=== PATIENT | female | born 1960 | race Hispanic/Latino ===

== ENCOUNTER 2017-11-09 13:00 | Emergency (ER) | payer OTHER ==
--- NOTE | 2017-11-09 15:33 | RAD REPORT ---
EXAM DESCRIPTION: US - Abdomen Exam Limited - 11/09/2017 3:06 pm CLINICAL HISTORY: ruq;Abd pain COMPARISON: ABDOMINAL EXAM COMPLETE dated 07/18/2013 FINDINGS: The gallbladder demonstrates no gallstones. No pericholecystic fluid or gallbladder wall t hickening. The common bile duct is normal measuring 3 mm. The liver demonstrates no findings of intrahepatic biliary dilatation. IMPRESSION: Unremarkable examination.
[2017-11-09] MEDS ORDERED: MORPHINE 4 MG/ML SYR ONE (15:50)
[2017-11-09] MEDS ORDERED: ONDANSETRON 4 MG/2 ML VIAL ONE (15:50)
[2017-11-09] MEDS ORDERED: NA CHLORIDE 0.9% 1,000 ML ONE (15:50)
[2017-11-09 15:54] LABS: Absolute Lymphocytes (CBC) 1.4 K/uL (0.7-4.9); Absolute Monocytes 0.8 K/uL (0.1-1.3); Absolute Neutrophil 7.9 K/uL (1.8-8.0); Basophils % 0.4 % (0-1.3); Eosinophils % 0.7 % (0-4.4); Hematocrit 41.4 % (36.0-45.0); Lymphocytes % 13.8 % (15.3-44.8); MCH 28.9 pg (27.0-35.0); MCV 86.2 fL (80-100); Monocytes % 8.1 % (3.3-12.3)
[2017-11-09 16:12] LABS: ALT/SGPT 17 U/L (12-78); AST/SGOT 19 U/L (15-37); Albumin 3.8 g/dL (3.4-5.0); Alkaline Phosphatase 147 U/L (45-117); BUN Blood Urea Nitrogen 14 mg/dL (7-18); Bicarbonate 27 mmol/L (21-32); Bilirubin Direct 0.2 mg/dL (0-0.2); Bilirubin Total 0.9 mg/dL (0.2-1.0); Glucose Level 119 mg/dL (74-106); Lipase 243 U/L (73-393); Potassium 3.7 mmol/L (3.5-5.1); Protein, Total 8.5 g/dL (6.4-8.2); Sodium Level 138 mmol/L (136-145)
[2017-11-09 16:35] LABS: Urine Bacteria <20 /HPF (<20); Urine Culture Reflex Order REFLEXED
[2017-11-09 16:38] LABS: Urine Blood TRACE (NEG); Urine Glucose NEGATIVE (NEG); Urine Protein NEGATIVE (NEG); Urine Specific Gravity 1.025 (1.005-1.030)
--- NOTE | 2017-11-09 16:49 | RAD REPORT ---
EXAM DESCRIPTION: CT - Stone Protocol - 11/09/2017 4:32 pm CLINICAL HISTORY: Abdominal pain. Right lower quadrant pain for 1 day with vomiting COMPARISON: 2014 TECHNIQUE: Computed axial tomography of the abdomen pelvis was obtained without oral or IV contrast. Lack of IV and oral contrast limits evaluation of solid organs, bowel, and vessels. Coronal reformat geoff images were obtained and reviewed. All CT scans are performed using dose optimization technique as appropriate and may include automated exposure control or mA/KV adjustment according to patient size. FINDINGS: Small nonobstructing renal calculi are present bilaterally without hydronephrosis. A 1 mil limeter calculus is present within the distal right ureter. A bladder calculus is not seen. A cirrhotic liver is present. Small low-density lesion within the right lobe is unchanged and consist ent with a cyst. The spleen measures 15 centimeters. The pancreas and adrenals are unremarkable. Small ventral and umbilical hernias are seen. There is no evidence of diverticulitis. The appendix appears normal Mild right middle and right lower lobe opacities may represent atelectasis IMPRESSION: Bilateral nonobstructing renal calculi Nonobstructing 1 millimeter distal right ureteral calculus Cirrhosis
--- NOTE | 2017-11-09 16:57 | ER ---
Nurse's Notes [facility] Name: Andie Lima Age: 57 yrs Sex: Female : 1960 Arrival Date: 11/09/2017 Time: 13:03 Bed 17 Private MD: Diagnosis: Calculus of kidney and ureter;Upper abdominal pain, unspecified Presentation: 11/09 13:26 Presenting complaint: Patient states: RLQ pain that began yesterday. Pt reports nausea aa5 and vomiting, denies diarrhea. Transition of care: patient was not received from another setting of care. Onset of symptoms was November 2017. Risk Assessment: Do you want to hurt yourself or someone else? Patient reports no desire to harm self or others. Initial Sepsis Screen: Does the patient meet any 2 criteria? No. Patient's initial sepsis screen is negative. Does the patient have a suspected source of infection? No. Patient's initial sepsis screen is negative. Care prior to arrival: None. 13:26 Method Of Arrival: Ambulatory aa5 13:26 Acuity: TATUM 3 aa5 Historical: - Allergies: 13:27 Sulfa (Sulfonamide Antibiotics); aa5 - PMHx: 13:27 Hypertension; aa5 13:28 Hep C; Cirrhosis; TIA; aa5 - PSHx: 13:27 kidney stone removal; knee and back surgery; Carpal Tunnel Repair; aa5 - Immunization history:: Adult Immunizations up to date. - Social history:: Smoking status: Patient/guardian denies using tobacco. - Ebola Screening: : No symptoms or risks identified at this time. Screenin:00 Abuse screen: Denies threats or abuse. Denies injuries from another. Nutritional jl7 screening: No deficits noted. Tuberculosis screening: No symptoms or risk factors identified. Fall Risk IV access (20 points). Total Ayoub Fall Scale indicates No Risk (0-24 pts). Assessment: 13:45 General: Appears uncomfortable, Behavior is cooperative, anxious. Pain: Complains of jl7 pain in epigastric area and right upper quadrant Pain does not radiate. Pain currently is 8 out of 10 on a pain scale. Quality of pain is described as aching. Neuro: Level of Consciousness is awake, alert, obeys commands, Oriented to person, place, time, situation. Cardiovascular: Patient's skin is warm and dry. Respiratory: Airway is patent Respiratory effort is even, unlabored, Respiratory pattern is regular, symmetrical. GI: Bowel sounds present X 4 quads. Abd is soft X 4 quads Abdomen is tender to palpation in epigastric area and right upper quadrant. : No signs and/or symptoms were reported regarding the genitourinary system. Denies burning with urination, pain. EENT: No signs and/or symptoms were reported regarding the EENT system. Derm: Skin is pink, warm \T\ dry. Musculoskeletal: No signs and/or symptoms reported regarding the musculoskeletal system. 15:00 Reassessment: Patient and/or family updated on plan of care and expected duration. Pain jl7 level reassessed. Patient is alert, oriented x 3, equal unlabored respirations, skin warm/dry/pink. 16:00 Reassessment: Patient and/or family updated on plan of care and expected duration. Pain jl7 level reassessed. Patient is alert, oriented x 3, equal unlabored respirations, skin warm/dry/pink. 17:00 Reassessment: Patient and/or family updated on plan of care and expected duration. Pain jl7 level reassessed. Patient is alert, oriented x 3, equal unlabored respirations, skin warm/dry/pink. Patient states symptoms have improved. Vital Signs: 13:28 BP 157 / 74; Pulse 90; Resp 16 S; Temp 99.2(TE); Pulse Ox 95% on R/A; Weight 81.65 kg aa5 (R); Height 4 ft. 11 in. (149.86 cm) (R); Pain 9/10; 14:30 BP 150 / 75; Pulse 89; Resp 16; Pulse Ox 96% ; jl7 16:00 BP 145 / 74; Pulse 85; Resp 16; Pulse Ox 95% ; jl7 17:30 BP 151 / 74; Pulse 89; Resp 16; Pulse Ox 98% ; jl7 13:28 Body Mass Index 36.36 (81.65 kg, 149.86 cm) aa5 ED Course: 13:03 Patient arrived in ED. sb2 13:27 Triage completed. aa5 13:27 Arm band placed on. aa5 14:00 Patient has correct armband on for positive identification. Placed in gown. Bed in low jl7 position. Call light in reach. Side rails up X 1. Pulse ox on. NIBP on. Warm blanket given. 14:19 Aline Goins, BRIANA is Primary Nurse. jl7 14:28 Jamal Brown MD is Attending Physician. gs 15:06 US Abdomen Limited In Process Unspecified. EDMS 15:13 Ultrasound completed. Patient tolerated well. Patient moved back from ultrasound. lc3 15:30 Initial lab(s) drawn, by me, sent to lab. Urine collected: clean catch specimen, jl7 cloudy. Inserted saline lock: 22 gauge in left forearm, using aseptic technique. Blood collected. 16:[address] via wheelchair. vm2 16:32 CT completed. Patient tolerated procedure well. Patient moved back from CT. vm2 16:33 CT Stone Protocol In Process Unspecified. EDMS 16:56 Lei Whiting MD is Referral Physician. gs 17:43 No provider procedures requiring assistance completed. IV discontinued, intact, jl7 bleeding controlled, No redness/swelling at site. Pressure dressing applied. Administered Medications: 15:58 Drug: NS 0.9% 1000 ml Route: IV; Rate: 125 ml/hr; Site: left forearm; jl7 17:41 Follow up: Response: No adverse reaction; IV Status: IV converted to saline lock jl7 16:00 Drug: Zofran 4 mg Route: IVP; Site: left forearm; jl7 16:30 Follow up: Response: No adverse reaction; Pain is decreased jl7 16:02 Drug: morphine 4 mg Route: IVP; Site: left forearm; jl7 16:30 Follow up: Response: No adverse reaction; Pain is decreased jl7 Outcome: 16:57 Discharge ordered by . gs 17:43 Discharged to home ambulatory. jl7 17:43 Condition: stable 17:43 Discharge instructions given to patient, family, Instructed on discharge instructions, follow up and referral plans. medication usage, Demonstrated understanding of instructions, follow-up care, medications, Prescriptions given X 1. 17:47 Patient left the ED. jl7 Addendum: 11/13/2017 12:07 Addendum: Culture Results: Positive urine culture. Patient was not prescribed a a5 antibiotics at discharge. Report given to PARAS for further evaluation and then to sliver lapper for follow up with patient. Prescription called-in to pharmacy of choice. to [facility] in [place] per pt's choice at 1200. Signatures: Dispatcher [employer] EDErie [facility] CenterWeston, Mara, RN RN aa5 Clarissa Turner Jahala RN RN jl7 Patito Bravo 2 Jamal Brown MD MD Jaimie Becerril sb2
--- NOTE | 2017-11-09 16:57 | EDPHYS ---
Physician Documentation [facility] Name: Andie Lima Age: 57 yrs Sex: Female : 1960 Arrival Date: 11/09/2017 Time: 13:03 Bed 17 Private MD: ED Physician Jamal Brown HPI: 11/09 16:54 This 57 yrs old Female presents to ER via Ambulatory with complaints of gs Abdominal Pain. 16:54 The patient presents with abdominal pain in the right upper quadrant. Onset: The gs symptoms/episode began/occurred yesterday, and became worse. The symptoms radiate to Associated signs and symptoms: Pertinent negatives: chest pain. The symptoms are described as intermittent, sharp. Modifying factors: The symptoms are alleviated by nothing, the symptoms are aggravated by nothing. Severity of pain: At its worst the pain was moderate in the emergency department the pain is unchanged. The patient has not experienced similar symptoms in the past. Historical: - Allergies: 13:27 Sulfa (Sulfonamide Antibiotics); aa5 - PMHx: 13:27 Hypertension; aa5 13:28 Hep C; Cirrhosis; TIA; aa5 - PSHx: 13:27 kidney stone removal; knee and back surgery; Carpal Tunnel Repair; aa5 - Immunization history:: Adult Immunizations up to date. - Social history:: Smoking status: Patient/guardian denies using tobacco. - Ebola Screening: : No symptoms or risks identified at this time. ROS: 16:54 All other systems are negative. gs Exam: 16:54 Head/Face: Normocephalic, atraumatic. Eyes: Pupils equal round and reactive to light, gs extra-ocular motions intact. Lids and lashes normal. Conjunctiva and sclera are non-icteric and not injected. Cornea within normal limits. Periorbital areas with no swelling, redness, or edema. ENT: Nares patent. No nasal discharge, no septal abnormalities noted. Tympanic membranes are normal and external auditory canals are clear. Oropharynx with no redness, swelling, or masses, exudates, or evidence of obstruction, uvula midline. Mucous membranes moist. Neck: Trachea midline, no thyromegaly or masses palpated, and no cervical lymphadenopathy. Supple, full range of motion without nuchal rigidity, or vertebral point tenderness. No Meningismus. Chest/axilla: Normal chest wall appearance and motion. Nontender with no deformity. No lesions are appreciated. Cardiovascular: Regular rate and rhythm with a normal S1 and S2. No gallops, murmurs, or rubs. Normal PMI, no JVD. No pulse deficits. Respiratory: Lungs have equal breath sounds bilaterally, clear to auscultation and percussion. No rales, rhonchi or wheezes noted. No increased work of breathing, no retractions or nasal flaring. Back: No spinal tenderness. No costovertebral tenderness. Full range of motion. Skin: Warm, dry with normal turgor. Normal color with no rashes, no lesions, and no evidence of cellulitis. MS/ Extremity: Pulses equal, no cyanosis. Neurovascular intact. Full, normal range of motion. Neuro: Awake and alert, GCS 15, oriented to person, place, time, and situation. Cranial nerves II-XII grossly intact. Motor strength 5/5 in all extremities. Sensory grossly intact. Cerebellar exam normal. Normal gait. 16:54 Constitutional: The patient appears alert, awake. 16:54 Abdomen/GI: Palpation: moderate abdominal tenderness, in the right upper quadrant. Vital Signs: 13:28 BP 157 / 74; Pulse 90; Resp 16 S; Temp 99.2(TE); Pulse Ox 95% on R/A; Weight 81.65 kg aa5 (R); Height 4 ft. 11 in. (149.86 cm) (R); Pain 9/10; 14:30 BP 150 / 75; Pulse 89; Resp 16; Pulse Ox 96% ; jl7 16:00 BP 145 / 74; Pulse 85; Resp 16; Pulse Ox 95% ; jl7 17:30 BP 151 / 74; Pulse 89; Resp 16; Pulse Ox 98% ; jl7 13:28 Body Mass Index 36.36 (81.65 kg, 149.86 cm) aa5 MDM: 14:44 Patient medically screened. 16:54 Differential diagnosis: cholecystitis, Cholelithiasis, non-specific abd pain, gs pancreatitis, Ureterolithiasis. Data reviewed: vital signs, nurses notes. Response to treatment: the patient's symptoms have mildly improved after treatment, and as a result, I will discharge patient. 11/09 14:45 Order name: Basic Metabolic Panel; Complete Time: 16:19 gs 11/09 14:45 Order name: CBC with Diff; Complete Time: 16:19 11/09 14:45 Order name: Hepatic Function; Complete Time: 16:19 11/09 14:45 Order name: Lipase; Complete Time: 16:19 11/09 14:45 Order name: Urine Microscopic Only; Complete Time: 16:54 11/09 16:07 Order name: Urine Dipstick--Ancillary (enter results); Complete Time: 16:54 11/09 14:45 Order name: IV Saline Lock; Complete Time: 15:45 11/09 14:45 Order name: Labs collected and sent; Complete Time: 15:45 11/09 14:45 Order name: US Abdomen Limited; Complete Time: 15:50 11/09 16:19 Order name: CT Stone Protocol; Complete Time: 16:54 11/09 16:37 Order name: Urine Culture [facility] 11/09 14:45 Order name: Urine Dipstick-Ancillary (obtain specimen); Complete Time: 16:15 gs Administered Medications: 15:58 Drug: NS 0.9% 1000 ml Route: IV; Rate: 125 ml/hr; Site: left forearm; jl7 17:41 Follow up: Response: No adverse reaction; IV Status: IV converted to saline lock jl7 16:00 Drug: Zofran 4 mg Route: IVP; Site: left forearm; jl7 16:30 Follow up: Response: No adverse reaction; Pain is decreased jl7 16:02 Drug: morphine 4 mg Route: IVP; Site: left forearm; jl7 16:30 Follow up: Response: No adverse reaction; Pain is decreased jl Disposition: 11/09/17 16:57 Discharged to Home. Impression: Calculus of kidney and ureter, Upper abdominal pain, unspecified. - Condition is Stable. - Discharge Instructions: Kidney Stones. - Prescriptions for Tylenol- Codeine #4 300-60 mg Oral Tablet - take 1 tablet by ORAL route every 6 hours As needed; 10 tablet. - Medication Reconciliation Form, Thank You Letter, Antibiotic Education, Prescription Opioid Use form. - Follow up: Lei Whiting MD; When: 2 - 3 days; Reason: Re-evaluation by your physician. Signatures: Dispatcher [employer] EDNH Mara Weston, RN RN aa5 Aline Goins RN RN jl7 Jamal Brown MD MD gs Corrections: (The following items were deleted from the chart) 17:47 16:57 11/09/2017 16:57 Discharged to Home. Impression: Calculus of kidney and ureter; jl7 Upper abdominal pain, unspecified. Condition is Stable. Forms are Medication Reconciliation Form, Thank You Letter, Antibiotic Education, Prescription Opioid Use. Follow up: Lei Whiting; When: 2 - 3 days; Reason: Re-evaluation by your physician. gs
[2017-11-09 17:51] VITALS: TEMP 99.2
[2017-11-09 17:54] VITALS: BP 151/74; O2SAT 98
== END 2017-11-09 17:47 | disposition home or self-care (01) ==
LOC: ER 13:00
DX: N20.2 Calculus of kidney with calculus of ureter (principal); I10 Essential (primary) hypertension; Z88.2 Allergy status to sulfonamides
CPT/HCPCS: 36415; 74176; 76377; 76705; 80048; 80076; 81003; 81015; 83690; 85025; 87077; 87086; 87088; 87186; 96361; 96374; 96375; 99284; J2405; J7030

== ENCOUNTER 2021-02-16 20:20 | Emergency (ER) | payer BC ==
[2021-02-16 20:56] LABS: Absolute Lymphocytes (CBC) 1.5 K/uL (0.7-4.9); Basophils % 0.4 % (0-1.3); Hematocrit 39.9 % (36.0-45.0); Lymphocytes % 20.5 % (15.3-44.8); MPV 9.6 fL (7.6-11.3)
[2021-02-16 20:59] LABS: Protime INR 1.05
[2021-02-16 21:05] LABS: Potassium 3.6 mmol/L (3.5-5.1)
[2021-02-16 21:28] LABS: Urine Blood Trace-intact (Negative); Urine Glucose Negative (Negative); Urine Protein Negative (Negative); Urine Specific Gravity 1.025 (1.005-1.030)
[2021-02-16 21:39] LABS: ALT/SGPT 23 U/L (12-78); AST/SGOT 24 U/L (15-37); Albumin 3.8 g/dL (3.4-5.0); Alkaline Phosphatase 128 U/L (45-117); Bilirubin Direct 0.2 mg/dL (0-0.2); Bilirubin Total 0.6 mg/dL (0.2-1.0); Protein, Total 7.9 g/dL (6.4-8.2); Troponin (Emerg Dept Use Only) < 0.02 ng/mL (0.0-0.045)
--- NOTE | 2021-02-16 21:40 | RAD REPORT ---
EXAM DESCRIPTION: CT - Ct Stroke Brain Wo Cont - 02/16/2021 8:29 pm CLINICAL HISTORY: DOUBLE VISON COMPARISON: CT head October 2009 TECHNIQUE: Axial 5 millimeter thick images of the head were obtained without IV contrast. All CT scans are performed using dose optimization technique as appropriate and may include automated exposure control or mA/KV adjustment according to patient size. FINDINGS: No intracranial hemorrhage, mass, or cerebral edema. No acute infarction identifiable. No extra-axial fluid collections. Mccall matter-white matter differentiation is preserved. Ventricles no rmal. Intracranial findings are similar comparison. Mastoid air cells are clear. No acute paranasal sinus finding. Preliminary findings were provided to the referring physician by telephone 2030 hours. Preliminary im ages were only available in the exception folder which precluded dictation at the time of the study a nd precluded comparison to any prior imaging. IMPRESSION: No CT evidence of acute intracranial process.
--- NOTE | 2021-02-16 21:52 | RAD REPORT ---
EXAM DESCRIPTION: RAD - Chest Single View - 02/16/2021 9:07 pm CLINICAL HISTORY: double vision COMPARISON: Two view chest November 2012 TECHNIQUE: AP portable chest image was obtained 02/16/2021 9:07 pm . FINDINGS: Lung volumes are very low. Motion, artifact and prominent overlying soft tissues further l imit the examination. No peripheral mass or consolidation. Interstitial markings are prominent. There is some questionable patchy alveolar opacification in each lung base. Heart and vasculature are normal. No measurable pleu ral effusion and no pneumothorax. No acute bony abnormality seen. No acute aortic findings suspected. IMPRESSION: No large mass or consolidation. Low lung volumes additional factors detailed above limit the assessment. Minimal lung base infiltrate s are not entirely excluded.
[2021-02-16 21:54] LABS: Barbiturates NEGATIVE (NEGATIVE); Benzodiazepines NEGATIVE (NEGATIVE); Cocaine NEGATIVE (NEGATIVE); METHAMPHETAM NEGATIVE (NEGATIVE); Methadone NEGATIVE (NEGATIVE); Opiates NEGATIVE (NEGATIVE); Phencyclidine NEGATIVE (NEGATIVE); THC Cannibis NEGATIVE (NEGATIVE)
[2021-02-16] MEDS ORDERED: FLUORESCEIN SODIUM 1 MG/WRAP ONE (22:01)
[2021-02-16] MEDS ORDERED: TETRACAINE HCL 0.5% 4ML OPTH ONE (22:01)
--- NOTE | 2021-02-16 22:02 | RAD REPORT ---
EXAM DESCRIPTION: CT - Head angio - 02/16/2021 9:54 pm CLINICAL HISTORY: DOUBLE VISON TECHNIQUE: During dynamic enhancement using nonionic IV contrast, axial 1 millimeter thick images of the head were obtained. Sagittal and axial reconstruction images were generated using MIP technique and reviewed. All CT scans are performed using dose optimization technique as appropriate and may include automated exposure control or mA/KV adjustment according to patient size. COMPARISON: CT head same date FINDINGS: No aneurysm or vascular malformation identified. Major venous sinuses are patent. No stenosis, named branch occlusion, vasculitis or other significant vascular finding identifiable. Chronic sphenoid sinusitis is present. No expansile changes or extension beyond the melgar of the sinu s. IMPRESSION: Negative CT angio head examination. Chronic sphenoid sinusitis
--- NOTE | 2021-02-16 22:04 | RAD REPORT ---
EXAM DESCRIPTION: CT - Neck Angio - 02/16/2021 9:55 pm CLINICAL HISTORY: DOUBLE VISON TECHNIQUE: During dynamic enhancement using nonionic IV contrast, axial 2 mm thick images of the nec k were obtained. Sagittal and axial reconstruction images were generated using MIP technique and revi ewed. All CT scans are performed using dose optimization technique as appropriate and may include automated exposure control or mA/KV adjustment according to patient size. COMPARISON: CT head same date, CT angio head same date FINDINGS: No aneurysm or vascular malformation identified. No carotid or vertebral dissection. No aortic arch or great vessel origin abnormality seen. Artifact limits evaluation of the origin of r ight common carotid artery. Vertebral artery origins unremarkable as well. No stenosis, vasculitis or other significant carotid artery finding. No focal abnormality of either vertebral artery. Basilar a rtery is normal. IMPRESSION: Negative CT angio neck examination for acute or significant finding.
--- NOTE | 2021-02-16 22:50 | ER ---
Nurse's Notes [facility] Name: Andie Lima Age: 60 yrs Sex: Female : 1960 Arrival Date: 02/16/2021 Time: 20:31 Bed 4 Private MD: Diagnosis: Diplopia Presentation: 02/16 20:18 Chief complaint: EMS states: they were toned out for report of pt with visual bb disturbance and history of TIAs. Pt had episode of double vision lasting a couple of minutes at 1900 then it started again at 1930 and would not go away. Coronavirus screen: shortness of breath, Client presents with at least one sign or symptom that may indicate coronavirus-19. Standard/surgical mask placed on the client. Ebola Screen: No symptoms or risks identified at this time. 20:18 Method Of Arrival: EMS: [facility] bb 20:18 Care prior to arrival: IV initiated. 20 GA, in the right antecubital area. bb 20:28 Initial Sepsis Screen: Does the patient meet any 2 criteria? No. Patient's initial bb sepsis screen is negative. Does the patient have a suspected source of infection? No. Patient's initial sepsis screen is negative. Risk Assessment: Do you want to hurt yourself or someone else? Patient reports no desire to harm self or others. Onset of symptoms was February 16, 2021 at 19:00. 20:28 Acuity: TATUM 2 bb 21:[address] scan. Pt A\T\O x 4. Denies N, V, numbness, tingling, pain. Pt only c/o df1 double vision lasting for periods of 2-3 min then resolving. 22:49 Note Visual acuity completed. with glasses 20/200 left eye 20/200 right eye 20/200 both df1 eyes. 22:49 Note without glasses left eye 20/200 right eye 20/200 both eyes 20/200. df1 23:00 Note Pt on phone with family to inform them of transfer. df1 23:16 Note Pt states feeling anxious. Provider notified. Orders received. Pt A\T\O x 4. Denies df1 N, V, pain, dizziness, numbness, tingling. 23:55 An acute neurological deficit is present. The charge nurse has been notified. The df1 patients blood glucose was checked before arriving to the hospital and was found to be normal. 02/17 00:21 Note Pt to have another ct scan. Note pt found with white froth on mouth and difficult df1 to arouse. Provider at bedside. sternal rub preformed. Pt moans and briefly opens eyes. airway suctioned minimal secretions noted. Pt moving all four extremities but unable to follow commands. 2l NC in place. 00:21 Note 1 liter NS up with pressure bag. df1 00:41 Note Provider at bedside for reassessment. Note Pt back from CT no contrast. White df1 froth noted to mouth. Minimal secretions cleared. Gag reflex intact. Pt responds to physical stimuli. no eye opening noted. Pt swings arms during suctioning. Pt moving BLE voluntary. 96% on 2LNC. 00:50 Note ekg completed. Pt grunting with respirations. R20. 95% on 2 LNC. During suctioning df1 of oral airway, pt retracts from yanker and bites down. airway cleared. Pt moves spontaneously but does not follow commands. 02:18 Note No response noted from reversal agent. Pt pushes away when patient care initiated. df1 02:44 Note Pt somnolent. Gag reflex intact. Pt responds to painful stimuli. Pt does not df1 follow commands. Pt pushes away patient care. Historical: - Allergies: 02/16 20:40 Sulfa (Sulfonamide Antibiotics); bb - Home Meds: 20:40 losartan 100 mg oral tab 1 tab once daily [Active]; nadolol 40 mg oral tab 1 tab once bb daily [Active]; lactulose 10 gram/15 mL (15 mL) Oral soln 30 mL twice a day [Active]; iron pill 65 mg daily [Active]; vitamin D 3 1000 daily [Active]; Vitamin C 1000 daily [Active]; 22:40 lasix 40mg 2 tabs in am 1 tab in pm, [Active]; df1 - PMHx: 20:40 Cirrhosis; HEP C; Hypertension; TIA; bb - PSHx: 22:40 orthoscopic left knee; df1 - Immunization history:: Adult Immunizations up to date, Client reports receiving the 2nd dose of the Covid vaccine, Date received: July 07, 2020. - Social history:: Smoking status: unknown. Screenin:00 Abuse screen: Denies threats or abuse. Nutritional screening: No deficits noted. df1 Tuberculosis screening: No symptoms or risk factors identified. Fall Risk No fall in past 12 months (0 pts). No secondary diagnosis (0 pts). IV access (20 points). Ambulatory Aid- None/Bed Rest/Nurse Assist (0 pts). Gait- Normal/Bed Rest/Wheelchair (0 pts) Mental Status- Oriented to own ability (0 pts). Assessment: 20:18 Reassessment: Pt to CT scan via EMS stretcher code stroke called. bb 20:27 Reassessment: Accucheck completed BGL 133. bb 20:30 VAN Scoring: Arm Drift: Patients demonstrates NO arm weakness. Patient is VAN Negative. df1 Visual Disturbance: Patient reports double vision. Provider notified of +VAN scoring. Aphasia: No aphasia noted. Neglect: No neglect noted. T-PA (Activase) Screening:. General: Appears in no apparent distress. Behavior is calm, cooperative, Reports double vision. Pain: Denies pain. Neuro: Reports diplopia. Cardiovascular: No deficits noted. Respiratory: No deficits noted. GI: No deficits noted. : No deficits noted. EENT: Reports double vision. Derm: No deficits noted. Musculoskeletal: No deficits noted. 22:39 Reassessment: Initiated transfer to [facility] with Oidlia Mccracken RN. bb 22:48 EENT:. df1 23:20 The patient has not been NPO before screening. The patient is alert, and able to follow df1 commands. The patient does not exhibit slurred or garbled speech. The patient is not exhibiting difficulty speaking. The patient does not exhibit difficulty understanding words. The patient is able to swallow own secretions with no drooling or need for suction. Patient tolerated one teaspoon of water. No drooling, immediate coughing, gurgling, or clearing of the throat was noted. The patient tolerated 90mL of water. No drooling, immediate coughing, gurgling, or clearing of the throat was noted. The patient passed the bedside swallow screening. Oral medications may be given as ordered. Contact Physician for further diet orders. Provider notified of bedside swallow screening results: Kana Bennett MD. 02/17 00:18 Reassessment: pt accepted to [facility] by Dr Gay, hospitalist and Dr Whitfield bb neurologist. 01:35 Reassessment: Dr Bennett on phone with Dr Gay to report change in pt condition. bb Vital Signs: 02/16 20:28 BP 131 / 77; Pulse 80; Resp 20; Temp 98.5(O); Pulse Ox 95% on R/A; Weight 89.81 kg; bb Height 4 ft. 11 in. (149.86 cm) (R); Pain 0/10; 20:51 BP 128 / 61; Pulse 83; Resp 18; Pulse Ox 96% on R/A; Pain 0/10; df1 22:00 BP 138 / 73; Pulse 81; Resp 18; Pulse Ox 98% on R/A; Pain 0/10; df1 22:30 BP 135 / 79; Pulse 81; Resp 18; Pulse Ox 94% on R/A; Pain 0/10; df1 22:30 BP 133 / 77; Pulse 80; Resp 18; Pulse Ox 94% on R/A; Pain 0/10; df1 02/17 00:21 BP 98 / 79; Pulse 65; Resp 18; Pulse Ox 95% on 2 lpm NC; df1 00:40 BP 91 / 61; Pulse 70; Resp 25; Pulse Ox 94% on 2 lpm NC; df1 00:50 BP 121 / 91; Pulse 66; Resp 20; Pulse Ox 95% on 2 lpm NC; df1 01:58 BP 120 / 72; Pulse 69; Resp 18; Pulse Ox 95% on 4 lpm NC; df1 02/16 20:28 Body Mass Index 39.99 (89.81 kg, 149.86 cm) bb Visual Acuity: 02/16 22:30 Left Eye Visual acuity 20/200, Pupil size 3 mm, Normal, React To Light, Reactive To df1 Accomodation; Right Eye Visual acuity 20/200, Pupil size 3 mm, Normal, React To Light, Reactive To Accomodation; Both Eyes Visual acuity 20/200; With Lenses; 22:30 Left Eye Visual acuity 20/200, Pupil size 3 mm, Normal, Reactive To Accomodation; Right df1 Eye Visual acuity 20/200, Pupil size 3 mm, Normal, Reactive To Accomodation; Both Eyes Visual acuity 20/200; Without Lenses; NIH Stroke Scale Scores: 20:30 NIHSS Score: 0 df1 20:30 NIHSS Score: 0 mh7 20:45 NIHSS Score: 0 df1 21:00 NIHSS Score: 0 df1 21:15 NIHSS Score: 0 df1 21:45 NIHSS Score: 0 df1 22:15 NIHSS Score: 0 df1 ED Course: 20:[address] scan via EMS stretcher. bb 20:23 Initial lab(s) drawn, by me, sent to lab. bb 20:25 Maintain EMS IV. Dressing intact. Good blood return noted. Site clean \T\ dry. Gauge \T\ lp 1 site: 20g to R AC. 20:28 Arm band placed on right wrist. bb 20:31 Ct Stroke Brain Wo Cont In Process Unspecified. bp1 20:31 Ct Stroke Brain Wo Cont In Process Unspecified. bp1 20:31 Ct Stroke Brain Wo Cont In Process Unspecified. bp1 20:31 Patient arrived in ED. bp1 20:31 Kana Bennett MD is Attending Physician. mh7 20:39 Triage completed. bb 20:39 EKG done, by ED staff, reviewed by Kana Bennett MD. bb 20:50 Briseida Alexander is Primary Nurse. df1 20:50 No provider procedures requiring assistance completed. df1 20:50 Patient has correct armband on for positive identification. Placed in gown. Bed in low df1 position. Call light in reach. Side rails up X 1. 21:07 Stroke CXR 1 View In Process Unspecified. EDMS 21:34 Troponin (emerg Dept Use Only) Sent. df1 21:34 LFT's Sent. df1 21:34 ETOH Level Sent. df1 21:34 UDS Sent. df1 21:54 Head angio In Process Unspecified. EDMS 21:54 Neck Angio In Process Unspecified. EDMS 22:15 Assist provider with eye exam of both eyes. using fluorescein stain, Performed by df1 Kana Bennett MD Patient tolerated well. 22:38 SARS-COV-2 RT PCR Sent. df1 02/17 00:39 CT Head Brain wo Cont In Process Unspecified. EDMS 01:50 Rivera cath inserted, using sterile technique, 16 Fr., by me, balloon inflated, to df1 gravity drainage. 01:57 Arterial Blood Gas Sent. df1 04:15 Patient transferred, IV remains in place. df1 Administered Medications: 02/16 22:15 Drug: Tetracaine Drops 0.5 % 1 drops Route: Ophthalmic; Site: both eyes; df1 23:20 Drug: Ativan (LORazepam) 0.5 mg Route: IVP; Site: right antecubital; df1 02/17 01:57 Drug: Flumazenil 0.2 mg Route: IVP; Site: right antecubital; df1 02:40 Follow up: Response: No adverse reaction df1 Point of Care Testing: Blood Glucose: 02/16 22:00 Blood Glucose: 133 mg/dL; df1 Ranges: Outcome: 22:50 ER care complete, transfer ordered by MD. browning 02/17 03:03 Patient left the ED. df1 04:13 Transferred by ground EMS df1 04:13 Condition: deteriorated 04:13 Instructed on the need for admit, Pt was instructed on need to transfer prior to decline in condition. NIH Stroke Scale - NIH Stroke Score Date: 02/16/2021 Time: 20:30 Total Score = 0 1a. Level of Consciousness (LOC) - 0(Alert) 1b. Level of Consciousness (LOC) (Month \T\ Age) - 0(Both) 1c. LOC Commands (Open \T\ Closes Eyes/Plastic Cnc Machine Operator) - 0(Both) 2. Best Gaze (Lateral Gaze Paresis) - 0(Normal) 3. Visual Field Loss - 0(No visual loss) 4. Facial Palsy - 0(Normal) 5a. Left Arm: Motor (10-second hold) - 0(No drift) 5b. Right Arm: Motor (10-second hold) - 0(No drift) 6a. Left Leg: Motor (5-second hold - always test supine) - 0(No drift) 6b. Right Leg: Motor (5-second hold - always test supine) - 0(No drift) 7. Limb Ataxia (finger/nose \T\ heel/harry - test with eyes open) - 0(Absent) 8. Sensory Loss (pinprick arms/legs/face) - 0(Normal) 9. Best Language: Aphasia (description/naming/reading) - 0(No aphasia) 10. Dysarthria (speech clarity - read or repeat words) - 0(Normal) 11. Extinction and Inattention (visual/tactile/auditory/spatial/personal) - 0(No abnormality) Initials: df1 NIH Stroke Scale - NIH Stroke Score Date: 02/16/2021 Time: 20:30 Total Score = 0 1a. Level of Consciousness (LOC) - 0(Alert) 1b. Level of Consciousness (LOC) (Month \T\ Age) - 0(Both) 1c. LOC Commands (Open \T\ Closes Eyes/Plastic Cnc Machine Operator) - 0(Both) 2. Best Gaze (Lateral Gaze Paresis) - 0(Normal) 3. Visual Field Loss - 0(No visual loss) 4. Facial Palsy - 0(Normal) 5a. Left Arm: Motor (10-second hold) - 0(No drift) 5b. Right Arm: Motor (10-second hold) - 0(No drift) 6a. Left Leg: Motor (5-second hold - always test supine) - 0(No drift) 6b. Right Leg: Motor (5-second hold - always test supine) - 0(No drift) 7. Limb Ataxia (finger/nose \T\ heel/harry - test with eyes open) - 0(Absent) 8. Sensory Loss (pinprick arms/legs/face) - 0(Normal) 9. Best Language: Aphasia (description/naming/reading) - 0(No aphasia) 10. Dysarthria (speech clarity - read or repeat words) - 0(Normal) 11. Extinction and Inattention (visual/tactile/auditory/spatial/personal) - 0(No abnormality) Initials: 7 NIH Stroke Scale - NIH Stroke Score Date: 02/16/2021 Time: 20:45 Total Score = 0 1a. Level of Consciousness (LOC) - 0(Alert) 1b. Level of Consciousness (LOC) (Month \T\ Age) - 0(Both) 1c. LOC Commands (Open \T\ Closes Eyes/Plastic Cnc Machine Operator) - 0(Both) 2. Best Gaze (Lateral Gaze Paresis) - 0(Normal) 3. Visual Field Loss - 0(No visual loss) 4. Facial Palsy - 0(Normal) 5a. Left Arm: Motor (10-second hold) - 0(No drift) 5b. Right Arm: Motor (10-second hold) - 0(No drift) 6a. Left Leg: Motor (5-second hold - always test supine) - 0(No drift) 6b. Right Leg: Motor (5-second hold - always test supine) - 0(No drift) 7. Limb Ataxia (finger/nose \T\ heel/harry - test with eyes open) - 0(Absent) 8. Sensory Loss (pinprick arms/legs/face) - 0(Normal) 9. Best Language: Aphasia (description/naming/reading) - 0(No aphasia) 10. Dysarthria (speech clarity - read or repeat words) - 0(Normal) 11. Extinction and Inattention (visual/tactile/auditory/spatial/personal) - 0(No abnormality) Initials: df1 NIH Stroke Scale - NIH Stroke Score Date: 02/16/2021 Time: 21:00 Total Score = 0 1a. Level of Consciousness (LOC) - 0(Alert) 1b. Level of Consciousness (LOC) (Month \T\ Age) - 0(Both) 1c. LOC Commands (Open \T\ Closes Eyes/Plastic Cnc Machine Operator) - 0(Both) 2. Best Gaze (Lateral Gaze Paresis) - 0(Normal) 3. Visual Field Loss - 0(No visual loss) 4. Facial Palsy - 0(Normal) 5a. Left Arm: Motor (10-second hold) - 0(No drift) 5b. Right Arm: Motor (10-second hold) - 0(No drift) 6a. Left Leg: Motor (5-second hold - always test supine) - 0(No drift) 6b. Right Leg: Motor (5-second hold - always test supine) - 0(No drift) 7. Limb Ataxia (finger/nose \T\ heel/harry - test with eyes open) - 0(Absent) 8. Sensory Loss (pinprick arms/legs/face) - 0(Normal) 9. Best Language: Aphasia (description/naming/reading) - 0(No aphasia) 10. Dysarthria (speech clarity - read or repeat words) - 0(Normal) 11. Extinction and Inattention (visual/tactile/auditory/spatial/personal) - 0(No abnormality) Initials: df1 NIH Stroke Scale - NIH Stroke Score Date: 02/16/2021 Time: 21:15 Total Score = 0 1a. Level of Consciousness (LOC) - 0(Alert) 1b. Level of Consciousness (LOC) (Month \T\ Age) - 0(Both) 1c. LOC Commands (Open \T\ Closes Eyes/Plastic Cnc Machine Operator) - 0(Both) 2. Best Gaze (Lateral Gaze Paresis) - 0(Normal) 3. Visual Field Loss - 0(No visual loss) 4. Facial Palsy - 0(Normal) 5a. Left Arm: Motor (10-second hold) - 0(No drift) 5b. Right Arm: Motor (10-second hold) - 0(No drift) 6a. Left Leg: Motor (5-second hold - always test supine) - 0(No drift) 6b. Right Leg: Motor (5-second hold - always test supine) - 0(No drift) 7. Limb Ataxia (finger/nose \T\ heel/harry - test with eyes open) - 0(Absent) 8. Sensory Loss (pinprick arms/legs/face) - 0(Normal) 9. Best Language: Aphasia (description/naming/reading) - 0(No aphasia) 10. Dysarthria (speech clarity - read or repeat words) - 0(Normal) 11. Extinction and Inattention (visual/tactile/auditory/spatial/personal) - 0(No abnormality) Initials: df1 NIH Stroke Scale - NIH Stroke Score Date: 02/16/2021 Time: 21:45 Total Score = 0 1a. Level of Consciousness (LOC) - 0(Alert) 1b. Level of Consciousness (LOC) (Month \T\ Age) - 0(Both) 1c. LOC Commands (Open \T\ Closes Eyes/Plastic Cnc Machine Operator) - 0(Both) 2. Best Gaze (Lateral Gaze Paresis) - 0(Normal) 3. Visual Field Loss - 0(No visual loss) 4. Facial Palsy - 0(Normal) 5a. Left Arm: Motor (10-second hold) - 0(No drift) 5b. Right Arm: Motor (10-second hold) - 0(No drift) 6a. Left Leg: Motor (5-second hold - always test supine) - 0(No drift) 6b. Right Leg: Motor (5-second hold - always test supine) - 0(No drift) 7. Limb Ataxia (finger/nose \T\ heel/harry - test with eyes open) - 0(Absent) 8. Sensory Loss (pinprick arms/legs/face) - 0(Normal) 9. Best Language: Aphasia (description/naming/reading) - 0(No aphasia) 10. Dysarthria (speech clarity - read or repeat words) - 0(Normal) 11. Extinction and Inattention (visual/tactile/auditory/spatial/personal) - 0(No abnormality) Initials: df1 NIH Stroke Scale - NIH Stroke Score Date: 02/16/2021 Time: 22:15 Total Score = 0 1a. Level of Consciousness (LOC) - 0(Alert) 1b. Level of Consciousness (LOC) (Month \T\ Age) - 0(Both) 1c. LOC Commands (Open \T\ Closes Eyes/Plastic Cnc Machine Operator) - 0(Both) 2. Best Gaze (Lateral Gaze Paresis) - 0(Normal) 3. Visual Field Loss - 0(No visual loss) 4. Facial Palsy - 0(Normal) 5a. Left Arm: Motor (10-second hold) - 0(No drift) 5b. Right Arm: Motor (10-second hold) - 0(No drift) 6a. Left Leg: Motor (5-second hold - always test supine) - 0(No drift) 6b. Right Leg: Motor (5-second hold - always test supine) - 0(No drift) 7. Limb Ataxia (finger/nose \T\ heel/harry - test with eyes open) - 0(Absent) 8. Sensory Loss (pinprick arms/legs/face) - 0(Normal) 9. Best Language: Aphasia (description/naming/reading) - 0(No aphasia) 10. Dysarthria (speech clarity - read or repeat words) - 0(Normal) 11. Extinction and Inattention (visual/tactile/auditory/spatial/personal) - 0(No abnormality) Initials: df1 Signatures: Dispatcher [employer] EDMS Bing Feng RN RN bb Rose Romero RN RN lp1 Kathy Platt Maurice, MD MD 7 Briseida Alexander df1 Corrections: (The following items were deleted from the chart) 02/16 20:46 20:25 Initial lab(s) drawn, by me, sent to lab. lp1 bb 21:54 21:34 To radiology for Neck Angio+CT.RAD.BRZ. df1 EDMS 21:54 21:34 To radiology for Head Angio+CT.RAD.BRZ. df1 EDMS 22:47 20:40 Home Meds: furosemide 40 mg Oral tab 1 tab 2 times per day; bb df1 22:47 22:40 PSHx: lasix 40mg 2 tabs in am and 1 tab in PM; df1 df1 22:57 22:49 Note Visual acuity completed df1 df1 23:20 23:19 Assist provider with eye exam of both eyes. using fluorescein stain, df1 Performed by Kana Bennett MD Patient tolerated well. df1 02/17 00:54 00:21 BP 98 / 79; Pulse 65bpm; Resp 18bpm; Pulse Ox 95% 2 lpm Nasal Cannula; df1df1 04:12 00:21 Note pt sound with white froth on mouth and difficult to arouse. Provider df1 at bedside. sternal rub preformed. Pt moans and briefly opens eyes. airway suctioned. Pt moving all four extermities but unable to follow commands. 2l NC in place. df1 04:12 00:41 Note Pt back from ct. White froth noted to mouth. Secretions cleared. pt df1 responds to physical stimuli. no eye opening noted. df1
--- NOTE | 2021-02-16 22:50 | EDPHYS ---
Physician Documentation [facility] Name: Andie Lima Age: 60 yrs Sex: Female : 1960 Arrival Date: 02/16/2021 Time: 20:31 Bed 4 Private MD: ED Physician Kaan Bennett HPI: 02/16 20:30 This 60 yrs old Female presents to ER via EMS with complaints of Double Vision.mh7 20:30 The patient is experiencing double vision, The patient sustained None. to both eyes, mh7 caused by an unknown mechanism. Onset: The symptoms/episode began/occurred today, at 19:00. Duration: the symptoms are intermittent. Aggravated by nothing. Alleviated by nothing. Associated signs and symptoms: Pertinent negatives: chills, dizziness, ear ache, fever, headache, runny nose. Patient wears glasses. Severity of symptoms: At their worst the symptoms were moderate today, in the emergency department the symptoms have improved markedly. Historical: - Allergies: 20:40 Sulfa (Sulfonamide Antibiotics); bb - Home Meds: 20:40 losartan 100 mg oral tab 1 tab once daily [Active]; nadolol 40 mg oral tab 1 tab once bb daily [Active]; lactulose 10 gram/15 mL (15 mL) Oral soln 30 mL twice a day [Active]; iron pill 65 mg daily [Active]; vitamin D 3 1000 daily [Active]; Vitamin C 1000 daily [Active]; 22:40 lasix 40mg 2 tabs in am 1 tab in pm, [Active]; df1 - PMHx: 20:40 Cirrhosis; HEP C; Hypertension; TIA; bb - PSHx: 22:40 orthoscopic left knee; df1 - Immunization history:: Adult Immunizations up to date, Client reports receiving the 2nd dose of the Covid vaccine, Date received: July 07, 2020. - Social history:: Smoking status: unknown. ROS: 20:30 Constitutional: Negative for fever, chills, and weight loss, ENT: Negative for injury, mh7 pain, and discharge, Neck: Negative for injury, pain, and swelling, Cardiovascular: Negative for chest pain, palpitations, and edema, Respiratory: Negative for shortness of breath, cough, wheezing, and pleuritic chest pain, Abdomen/GI: Negative for abdominal pain, nausea, vomiting, diarrhea, and constipation, Back: Negative for injury and pain, : Negative for injury, bleeding, discharge, and swelling, MS/Extremity: Negative for injury and deformity, Skin: Negative for injury, rash, and discoloration, Neuro: Negative for headache, weakness, numbness, tingling, and seizure, Psych: Negative for depression, anxiety, suicide ideation, homicidal ideation, and hallucinations, Allergy/Immunology: Negative for hives, rash, and allergies, Endocrine: Negative for neck swelling, polydipsia, polyuria, polyphagia, and marked weight changes, Hematologic/Lymphatic: Negative for swollen nodes, abnormal bleeding, and unusual bruising. Exam: 20:30 Constitutional: This is a well developed, well nourished patient who is awake, alert, mh7 and in no acute distress. Head/Face: Normocephalic, atraumatic. Neck: Trachea midline, no thyromegaly or masses palpated, and no cervical lymphadenopathy. Supple, full range of motion without nuchal rigidity, or vertebral point tenderness. No Meningismus. Chest/axilla: Normal chest wall appearance and motion. Nontender with no deformity. No lesions are appreciated. Cardiovascular: Regular rate and rhythm with a normal S1 and S2. No gallops, murmurs, or rubs. Normal PMI, no JVD. No pulse deficits. Respiratory: Lungs have equal breath sounds bilaterally, clear to auscultation and percussion. No rales, rhonchi or wheezes noted. No increased work of breathing, no retractions or nasal flaring. Abdomen/GI: Soft, non-tender, with normal bowel sounds. No distension or tympany. No guarding or rebound. No evidence of tenderness throughout. Back: No spinal tenderness. No costovertebral tenderness. Full range of motion. Skin: Warm, dry with normal turgor. Normal color with no rashes, no lesions, and no evidence of cellulitis. MS/ Extremity: Pulses equal, no cyanosis. Neurovascular intact. Full, normal range of motion. Neuro: Awake and alert, GCS 15, oriented to person, place, time, and situation. Cranial nerves II-XII grossly intact. Motor strength 5/5 in all extremities. Sensory grossly intact. Cerebellar exam normal. Normal gait. Psych: Awake, alert, with orientation to person, place and time. Behavior, mood, and affect are within normal limits. Vital Signs: 20:28 BP 131 / 77; Pulse 80; Resp 20; Temp 98.5(O); Pulse Ox 95% on R/A; Weight 89.81 kg; bb Height 4 ft. 11 in. (149.86 cm) (R); Pain 0/10; 20:51 BP 128 / 61; Pulse 83; Resp 18; Pulse Ox 96% on R/A; Pain 0/10; df1 22:00 BP 138 / 73; Pulse 81; Resp 18; Pulse Ox 98% on R/A; Pain 0/10; df1 22:30 BP 135 / 79; Pulse 81; Resp 18; Pulse Ox 94% on R/A; Pain 0/10; df1 22:30 BP 133 / 77; Pulse 80; Resp 18; Pulse Ox 94% on R/A; Pain 0/10; df1 02/17 00:21 BP 98 / 79; Pulse 65; Resp 18; Pulse Ox 95% on 2 lpm NC; df1 00:40 BP 91 / 61; Pulse 70; Resp 25; Pulse Ox 94% on 2 lpm NC; df1 00:50 BP 121 / 91; Pulse 66; Resp 20; Pulse Ox 95% on 2 lpm NC; df1 01:58 BP 120 / 72; Pulse 69; Resp 18; Pulse Ox 95% on 4 lpm NC; df1 02/16 20:28 Body Mass Index 39.99 (89.81 kg, 149.86 cm) bb NIH Stroke Scale Scores: 02/16 20:30 NIHSS Score: 0 df1 20:30 NIHSS Score: 0 7 20:45 NIHSS Score: 0 df1 21:00 NIHSS Score: 0 df1 21:15 NIHSS Score: 0 df1 21:45 NIHSS Score: 0 df1 22:15 NIHSS Score: 0 df1 Visual Acuity: 22:30 Left Eye Visual acuity 20/200, Pupil size 3 mm, Normal, React To Light, Reactive To df1 Accomodation; Right Eye Visual acuity 20/200, Pupil size 3 mm, Normal, React To Light, Reactive To Accomodation; Both Eyes Visual acuity 20/200; With Lenses; 22:30 Left Eye Visual acuity 20/200, Pupil size 3 mm, Normal, Reactive To Accomodation; Right df1 Eye Visual acuity 20/200, Pupil size 3 mm, Normal, Reactive To Accomodation; Both Eyes Visual acuity 20/200; Without Lenses; MDM: 22:47 Differential diagnosis: Corneal abrasion of both eyes. Corneal ulcer of both eyes. mh7 Foreign body in both eyes. Acute iritis of both eyes. Acute glaucoma in both eyes. Ultraviolet keratitis in. Data reviewed: vital signs, nurses notes, EMS record, lab test result(s), CBC, electrolytes, EKG, radiologic studies, CT scan, plain films. Data interpreted: Pulse oximetry: on room air is 98 %. Interpretation: normal. Counseling: I had a detailed discussion with the patient and/or guardian regarding: the historical points, exam findings, and any diagnostic results supporting the discharge/admit diagnosis, the presence of at least one elevated blood pressure reading (>120/80) during this emergency department visit, lab results, radiology results, the need to transfer to another facility, for higher level of care. Physician consultation: Morgan Brito MD was contacted at 22:15, regarding patient's condition, after a discussion of the case, a recommendation for transfer for higher level of care is made. 22:50 Patient medically screened. mh7 02/17 01:50 ED course: Patient was found to be more somnolent and more difficult to arouse mh7 approximately 35 to 40 minutes after receiving Ativan 0.5 mg IV. She still moving all extremities in response to sternal rub with moving extremities and expressing discomfort verbally. Repeat CT head without any acute changes. Discussed with Dr. Dobbs with accepting hospitalist at [facility] in the [facility] who requested ABG and dose of flumazenil.. 02/16 20:35 Order name: Basic Metabolic Panel; Complete Time: 21:08 bb 02/16 20:35 Order name: CBC with Diff; Complete Time: 21:03 bb 02/16 20:35 Order name: Protime (+inr); Complete Time: 21:03 bb 02/16 20:35 Order name: Ptt, Activated; Complete Time: 21:03 bb 02/16 20:38 Order name: Glucose, Ancillary Testing; Complete Time: 20:42 EDMS 02/16 21:04 Order name: UDS; Complete Time: 21:55 mh7 02/16 21:04 Order name: ETOH Level; Complete Time: 21:51 [facility] 02/16 21:04 Order name: LFT's; Complete Time: 21:51 [facility] 02/16 21:04 Order name: Troponin (emerg Dept Use Only); Complete Time: 21:51 [facility] 02/16 21:28 Order name: Urine Dipstick-Ancillary; Complete Time: 21:29 [facility] 02/16 22:32 Order name: SARS-COV-2 RT PCR; Complete Time: 23:55 [facility] 02/17 01:17 Order name: Glucose, Ancillary Testing; Complete Time: 01:23 [facility] 02/17 01:45 Order name: Arterial Blood Gas; Complete Time: 04:07 [facility] 02/16 20:31 Order name: Ct Stroke Brain Wo Cont; Complete Time: 21:51 [facility] 02/16 20:35 Order name: Stroke CXR 1 View; Complete Time: 21:55 02/16 20:35 Order name: EKG; Complete Time: 20:36 02/16 20:35 Order name: Accucheck; Complete Time: 20:35 02/16 20:35 Order name: Cardiac monitoring; Complete Time: 20:35 02/16 20:35 Order name: EKG - Nurse/Tech; Complete Time: 20:35 02/16 20:35 Order name: IV Saline Lock; Complete Time: 20:35 02/16 20:35 Order name: Labs collected and sent; Complete Time: 20:36 02/16 21:51 Order name: Head angio; Complete Time: 22:06 [facility] 02/16 21:51 Order name: Neck Angio; Complete Time: 22:06 [facility] 02/17 00:22 Order name: CT Head Brain wo Cont [facility] 02/16 20:35 Order name: NPO; Complete Time: 20:36 02/16 20:35 Order name: O2 Per Protocol; Complete Time: 20:36 02/16 20:35 Order name: O2 Sat Monitoring; Complete Time: 20:36 02/16 20:35 Order name: Stroke Swallow Screen; Complete Time: 23:13 02/16 20:58 Order name: Fluoresene Opth strip; Complete Time: 21:36 [facility] 02/16 21:04 Order name: Urine Dipstick-Ancillary (obtain specimen); Complete Time: 21:34 [facility] 02/16 21:29 Order name: Visual Acuity; Complete Time: 22:49 [facility] Administered Medications: 02/16 22:15 Drug: Tetracaine Drops 0.5 % 1 drops Route: Ophthalmic; Site: both eyes; df1 23:20 Drug: Ativan (LORazepam) 0.5 mg Route: IVP; Site: right antecubital; df1 02/17 01:57 Drug: Flumazenil 0.2 mg Route: IVP; Site: right antecubital; df1 02:40 Follow up: Response: No adverse reaction df1 Point of Care Testing: Blood Glucose: 02/16 22:00 Blood Glucose: 133 mg/dL; df1 Ranges: Critical Glucose Levels:Adult <50 mg/dl or >400 mg/dl <40 mg/dl or >180 mg/dl Disposition Summary: 02/16/21 22:50 Transfer Ordered Transfer Location: Other Acute Care Facility [facility] Reason: Higher level of care [facility] Condition: Stable mh Problem: new [facility] Symptoms: have improved mh7 Accepting Physician: Dr. Dobbs/Nahid(02/17/21 03:03) df1 Diagnosis - Diplopia [facility] Forms: - Medication Reconciliation Form 7 - SBAR form [facility] NIH Stroke Scale - NIH Stroke Score Date: 02/16/2021 Time: 20:30 Total Score = 0 1a. Level of Consciousness (LOC) - 0(Alert) 1b. Level of Consciousness (LOC) (Month \T\ Age) - 0(Both) 1c. LOC Commands (Open \T\ Closes Eyes/Open [employer] Operator Helper) - 0(Both) 2. Best Gaze (Lateral Gaze Paresis) - 0(Normal) 3. Visual Field Loss - 0(No visual loss) 4. Facial Palsy - 0(Normal) 5a. Left Arm: Motor (10-second hold) - 0(No drift) 5b. Right Arm: Motor (10-second hold) - 0(No drift) 6a. Left Leg: Motor (5-second hold - always test supine) - 0(No drift) 6b. Right Leg: Motor (5-second hold - always test supine) - 0(No drift) 7. Limb Ataxia (finger/nose \T\ heel/harry - test with eyes open) - 0(Absent) 8. Sensory Loss (pinprick arms/legs/face) - 0(Normal) 9. Best Language: Aphasia (description/naming/reading) - 0(No aphasia) 10. Dysarthria (speech clarity - read or repeat words) - 0(Normal) 11. Extinction and Inattention (visual/tactile/auditory/spatial/personal) - 0(No abnormality) Initials: df1 NIH Stroke Scale - NIH Stroke Score Date: 02/16/2021 Time: 20:30 Total Score = 0 1a. Level of Consciousness (LOC) - 0(Alert) 1b. Level of Consciousness (LOC) (Month \T\ Age) - 0(Both) 1c. LOC Commands (Open \T\ Closes Eyes/Open [employer] Operator Helper) - 0(Both) 2. Best Gaze (Lateral Gaze Paresis) - 0(Normal) 3. Visual Field Loss - 0(No visual loss) 4. Facial Palsy - 0(Normal) 5a. Left Arm: Motor (10-second hold) - 0(No drift) 5b. Right Arm: Motor (10-second hold) - 0(No drift) 6a. Left Leg: Motor (5-second hold - always test supine) - 0(No drift) 6b. Right Leg: Motor (5-second hold - always test supine) - 0(No drift) 7. Limb Ataxia (finger/nose \T\ heel/harry - test with eyes open) - 0(Absent) 8. Sensory Loss (pinprick arms/legs/face) - 0(Normal) 9. Best Language: Aphasia (description/naming/reading) - 0(No aphasia) 10. Dysarthria (speech clarity - read or repeat words) - 0(Normal) 11. Extinction and Inattention (visual/tactile/auditory/spatial/personal) - 0(No abnormality) Initials: mh7 NIH Stroke Scale - NIH Stroke Score Date: 02/16/2021 Time: 20:45 Total Score = 0 1a. Level of Consciousness (LOC) - 0(Alert) 1b. Level of Consciousness (LOC) (Month \T\ Age) - 0(Both) 1c. LOC Commands (Open \T\ Closes Eyes/Open [employer] Operator Helper) - 0(Both) 2. Best Gaze (Lateral Gaze Paresis) - 0(Normal) 3. Visual Field Loss - 0(No visual loss) 4. Facial Palsy - 0(Normal) 5a. Left Arm: Motor (10-second hold) - 0(No drift) 5b. Right Arm: Motor (10-second hold) - 0(No drift) 6a. Left Leg: Motor (5-second hold - always test supine) - 0(No drift) 6b. Right Leg: Motor (5-second hold - always test supine) - 0(No drift) 7. Limb Ataxia (finger/nose \T\ heel/harry - test with eyes open) - 0(Absent) 8. Sensory Loss (pinprick arms/legs/face) - 0(Normal) 9. Best Language: Aphasia (description/naming/reading) - 0(No aphasia) 10. Dysarthria (speech clarity - read or repeat words) - 0(Normal) 11. Extinction and Inattention (visual/tactile/auditory/spatial/personal) - 0(No abnormality) Initials: df1 NIH Stroke Scale - NIH Stroke Score Date: 02/16/2021 Time: 21:00 Total Score = 0 1a. Level of Consciousness (LOC) - 0(Alert) 1b. Level of Consciousness (LOC) (Month \T\ Age) - 0(Both) 1c. LOC Commands (Open \T\ Closes Eyes/Open [employer] Operator Helper) - 0(Both) 2. Best Gaze (Lateral Gaze Paresis) - 0(Normal) 3. Visual Field Loss - 0(No visual loss) 4. Facial Palsy - 0(Normal) 5a. Left Arm: Motor (10-second hold) - 0(No drift) 5b. Right Arm: Motor (10-second hold) - 0(No drift) 6a. Left Leg: Motor (5-second hold - always test supine) - 0(No drift) 6b. Right Leg: Motor (5-second hold - always test supine) - 0(No drift) 7. Limb Ataxia (finger/nose \T\ heel/harry - test with eyes open) - 0(Absent) 8. Sensory Loss (pinprick arms/legs/face) - 0(Normal) 9. Best Language: Aphasia (description/naming/reading) - 0(No aphasia) 10. Dysarthria (speech clarity - read or repeat words) - 0(Normal) 11. Extinction and Inattention (visual/tactile/auditory/spatial/personal) - 0(No abnormality) Initials: df1 NIH Stroke Scale - NIH Stroke Score Date: 02/16/2021 Time: 21:15 Total Score = 0 1a. Level of Consciousness (LOC) - 0(Alert) 1b. Level of Consciousness (LOC) (Month \T\ Age) - 0(Both) 1c. LOC Commands (Open \T\ Closes Eyes/Open [employer] Operator Helper) - 0(Both) 2. Best Gaze (Lateral Gaze Paresis) - 0(Normal) 3. Visual Field Loss - 0(No visual loss) 4. Facial Palsy - 0(Normal) 5a. Left Arm: Motor (10-second hold) - 0(No drift) 5b. Right Arm: Motor (10-second hold) - 0(No drift) 6a. Left Leg: Motor (5-second hold - always test supine) - 0(No drift) 6b. Right Leg: Motor (5-second hold - always test supine) - 0(No drift) 7. Limb Ataxia (finger/nose \T\ heel/harry - test with eyes open) - 0(Absent) 8. Sensory Loss (pinprick arms/legs/face) - 0(Normal) 9. Best Language: Aphasia (description/naming/reading) - 0(No aphasia) 10. Dysarthria (speech clarity - read or repeat words) - 0(Normal) 11. Extinction and Inattention (visual/tactile/auditory/spatial/personal) - 0(No abnormality) Initials: df1 NIH Stroke Scale - NIH Stroke Score Date: 02/16/2021 Time: 21:45 Total Score = 0 1a. Level of Consciousness (LOC) - 0(Alert) 1b. Level of Consciousness (LOC) (Month \T\ Age) - 0(Both) 1c. LOC Commands (Open \T\ Closes Eyes/Open [employer] Operator Helper) - 0(Both) 2. Best Gaze (Lateral Gaze Paresis) - 0(Normal) 3. Visual Field Loss - 0(No visual loss) 4. Facial Palsy - 0(Normal) 5a. Left Arm: Motor (10-second hold) - 0(No drift) 5b. Right Arm: Motor (10-second hold) - 0(No drift) 6a. Left Leg: Motor (5-second hold - always test supine) - 0(No drift) 6b. Right Leg: Motor (5-second hold - always test supine) - 0(No drift) 7. Limb Ataxia (finger/nose \T\ heel/harry - test with eyes open) - 0(Absent) 8. Sensory Loss (pinprick arms/legs/face) - 0(Normal) 9. Best Language: Aphasia (description/naming/reading) - 0(No aphasia) 10. Dysarthria (speech clarity - read or repeat words) - 0(Normal) 11. Extinction and Inattention (visual/tactile/auditory/spatial/personal) - 0(No abnormality) Initials: df1 NIH Stroke Scale - NIH Stroke Score Date: 02/16/2021 Time: 22:15 Total Score = 0 1a. Level of Consciousness (LOC) - 0(Alert) 1b. Level of Consciousness (LOC) (Month \T\ Age) - 0(Both) 1c. LOC Commands (Open \T\ Closes Eyes/Open [employer] Operator Helper) - 0(Both) 2. Best Gaze (Lateral Gaze Paresis) - 0(Normal) 3. Visual Field Loss - 0(No visual loss) 4. Facial Palsy - 0(Normal) 5a. Left Arm: Motor (10-second hold) - 0(No drift) 5b. Right Arm: Motor (10-second hold) - 0(No drift) 6a. Left Leg: Motor (5-second hold - always test supine) - 0(No drift) 6b. Right Leg: Motor (5-second hold - always test supine) - 0(No drift) 7. Limb Ataxia (finger/nose \T\ heel/harry - test with eyes open) - 0(Absent) 8. Sensory Loss (pinprick arms/legs/face) - 0(Normal) 9. Best Language: Aphasia (description/naming/reading) - 0(No aphasia) 10. Dysarthria (speech clarity - read or repeat words) - 0(Normal) 11. Extinction and Inattention (visual/tactile/auditory/spatial/personal) - 0(No abnormality) Initials: df1 Signatures: Dispatcher [employer] EDMS Bing Feng, BRIANA RN bb Alonzo Jordan, GYM ATTENDANT-C GYM ATTENDANT-Cla1 Kathy Platt Maurice, MD MD 7 Briseida Alexander df1 Corrections: (The following items were deleted from the chart) 21:54 20:44 Head Angio+CT.RAD.BRZ ordered. EDMS EDMS 21:54 20:44 Neck Angio+CT.RAD.BRZ ordered. EDMS EDMS 22:32 22:21 CORONAVIRUS+MR.LAB.BRZ ordered. EDMS EDMS 22:47 20:40 Home Meds: furosemide 40 mg Oral tab 1 tab 2 times per day; bb df1 22:47 22:40 PSHx: lasix 40mg 2 tabs in am and 1 tab in PM; df1 df1 02/17 01:37 02/16 22:50 [place] [id number] 02/17 03:03 01:37 Dr. Dobbs/Nahid [facility] df1
[2021-02-16] MEDS ORDERED: LORazepam 2 MG/ML VIAL ONE (23:35)
[2021-02-17] MEDS ORDERED: NA CHLORIDE 0.9% 1,000 ML ONE (00:42)
[2021-02-17 01:56] LABS: Arterial Blood Carboxyhemoglob 1.6 % (0-1.5); Blood Gas Oxyhemoglobin 91.6 % (94-97); Blood O2 Saturation 93.8 % (92-98.5)
[2021-02-17] MEDS ORDERED: FLUMAZENIL 0.1 MG/ML (5 mL VIAL) IV ONE (02:18)
[2021-02-17 03:10] VITALS: TEMP 98.5
[2021-02-17 03:20] VITALS: O2SAT 95
[2021-02-17 03:21] VITALS: BP 120/72
--- NOTE | 2021-02-18 09:00 | EKG ---
Test Date: 2021-02-16 Test Time: 20:39:55 Vice Provost: MEASUREMENT RESULTS: Intervals: Rate: 77 MO: 180 QRSD: 90 QT: 380 QTc: 430 [place]: P: 9 MO: 180 QRS: -7 T: 68 INTERPRETIVE STATEMENTS: Normal sinus rhythm Nonspecific ST and T wave abnormality Abnormal ECG Compared to ECG 10/17/2009 20:03:43 ST (T wave) deviation now present Electronically Signed On 02-18-21 08:57:31 CDT by Gonsalo Page
--- NOTE | 2021-02-18 11:48 | RAD REPORT ---
EXAM DESCRIPTION: CT - Head Brain Wo Cont - 02/17/2021 5:53 am CLINICAL HISTORY: 60 years, Female, AMS COMPARISON: Previous CT CTA performed earlier. FINDINGS: Multiple transaxial tomograms of the brain were obtained from the base of the skull to the vertex without contrast. 2-D multiplanar reformats and the coronal and sagittal plane were performed and reviewed. This exam was performed according to our departmental dose-optimization protocol, which includes auto mated exposure control, adjustment of the mA and/or kV according to patient size and/or use of iterat olga reconstruction technique. Brain parenchyma demonstrate mild prominence of the sulci and gyri are corresponding to mild cerebral and cerebellar atrophy. There is minimal periventricular white matter changes of microvascular ische isac. There is no midline shift and/or mass effect. There is no evidence for acute intracranial hemorr erick. There is normal enhancement of the falx cerebri related to previous iodine study. There is no e vidence for significant abnormal vascular enhancement. There is normal appearance of the venous drain age system. Normal enhancement of the pituitary gland. Lateral ventricles and cisterns displace kong l appearance. No intra or extra axial fluid collections were seen. The calvarium is intact with no evidence for fracture. The visualized portions of the paranasal sinuses and orbits demonstrate to be clear. IMPRESSION: No acute intracranial pathology identified. Mild mild brain atrophy. Electronically signed by: Qamar Miller MD 02/17/2021 12:50 AM CDT Due to temporary technical issues with the PACS/Fluency reporting system, reports are being signed by the in house radiologist without review as a courtesy to ensure prompt reporting. The interpreting r adiologist is fully responsible for the content of the report.
== END 2021-02-17 03:03 ==
LOC: ER 20:20
DX: H53.2 Diplopia (principal); I10 Essential (primary) hypertension; Z86.73 Personal history of transient ischemic attack (TIA), and cerebral infarction without residual deficits; Z88.2 Allergy status to sulfonamides
CPT/HCPCS: 93005 ×2; 85025; 80048; 36415; 80320; 85610; 82947 ×2; 80076; 85730; 81003; 84484; 80307; 70450 ×2; 70496; 70498; 71045; 82805; 51702; 96375; 96374; 99285; U0003; Q9967; J7030

== ENCOUNTER 2023-09-25 11:04 | Emergency (ER) | payer BC, OTHER ==
[2023-09-25] MEDS ORDERED: PANTOPRAZOLE 40 MG INJ ONE (11:24)
[2023-09-25] MEDS ORDERED: OCTREOTIDE ACETATE 100 MCG/ML ONE (11:24)
[2023-09-25] MEDS ORDERED: NA CHLORIDE 0.9% 1,000 ML ONE (11:24)
--- NOTE | 2023-09-25 11:32 | EDPHYS ---
Physician Documentation [facility] Name: Andie Lima Age: 63 yrs Sex: Female : 1960 Arrival Date: 09/25/2023 Time: 11:04 Bed 2 Private MD: ED Physician Glen Patel HPI: 09/24 11:25 This 63 yrs old Female presents to ER via EMS with complaints of upper gi carmelina bleed. 11:25 The patient presents to the emergency department vomiting blood, a moderate amount, carmelina with rectal bleeding, melena. Historical: - Allergies: 11:07 Sulfa (Sulfonamide Antibiotics); rs5 - PMHx: 11: HEP C; Hypertension; TIA; Cirrhosis; rs5 - PSHx: :07 orthoscopic left knee; rs5 - Immunization history:: Adult Immunizations up to date. - Infectious Disease History:: Denies. - Social history:: Smoking status: Patient denies any tobacco usage or history of. ROS: 11:26 Constitutional: Negative for fever, chills, and weight loss, Eyes: Negative for injury, carmelina pain, redness, and discharge, ENT: Negative for injury, pain, and discharge, Neck: Negative for injury, pain, and swelling, Cardiovascular: Negative for chest pain, palpitations, and edema, Respiratory: Negative for shortness of breath, cough, wheezing, and pleuritic chest pain, Back: Negative for injury and pain, : Negative for injury, bleeding, discharge, and swelling, MS/Extremity: Negative for injury and deformity, Skin: Negative for injury, rash, and discoloration, Neuro: Negative for headache, weakness, numbness, tingling, and seizure, Psych: Negative for depression, anxiety, suicide ideation, homicidal ideation, and hallucinations, Allergy/Immunology: Negative for hives, rash, and allergies, Endocrine: Negative for neck swelling, polydipsia, polyuria, polyphagia, and marked weight changes, Hematologic/Lymphatic: Negative for swollen nodes, abnormal bleeding, and unusual bruising, 11:26 Abdomen/GI: Positive for abdominal pain, nausea and vomiting, abdominal cramps, abdominal distension, Exam: 11:26 Constitutional: This is a well developed, well nourished patient who is awake, alert, carmelina and in no acute distress. Head/Face: Normocephalic, atraumatic. Eyes: Pupils equal round and reactive to light, extra-ocular motions intact. Lids and lashes normal. Conjunctiva and sclera are non-icteric and not injected. Cornea within normal limits. Periorbital areas with no swelling, redness, or edema. ENT: Nares patent. No nasal discharge, no septal abnormalities noted. Tympanic membranes are normal and external auditory canals are clear. Oropharynx with no redness, swelling, or masses, exudates, or evidence of obstruction, uvula midline. Mucous membranes moist. Neck: Trachea midline, no thyromegaly or masses palpated, and no cervical lymphadenopathy. Supple, full range of motion without nuchal rigidity, or vertebral point tenderness. No Meningismus. Chest/axilla: Normal chest wall appearance and motion. Nontender with no deformity. No lesions are appreciated. Respiratory: Lungs have equal breath sounds bilaterally, clear to auscultation and percussion. No rales, rhonchi or wheezes noted. No increased work of breathing, no retractions or nasal flaring. Back: No spinal tenderness. No costovertebral tenderness. Full range of motion. Female : Normal external genitalia. Skin: Warm, dry with normal turgor. Normal color with no rashes, no lesions, and no evidence of cellulitis. MS/ Extremity: Pulses equal, no cyanosis. Neurovascular intact. Full, normal range of motion. Neuro: Awake and alert, GCS 15, oriented to person, place, time, and situation. Cranial nerves II-XII grossly intact. Motor strength 5/5 in all extremities. Sensory grossly intact. Cerebellar exam normal. Normal gait. Psych: Awake, alert, with orientation to person, place and time. Behavior, mood, and affect are within normal limits. 11:26 Cardiovascular: Rate: tachycardic, actual rate is 113 bpm, Rhythm: regular, Heart sounds: normal, JVD: is not appreciated, 11:26 ECG was reviewed by the Attending Physician. Vital Signs: 11:05 BP 146 / 66; Pulse 113; Resp 18; Pulse Ox 95% on R/A; Weight 83.46 kg; Height 4 ft. 11 rs5 in. ; 11:17 BP 146 / 66; Pulse 113; Resp 20; Temp 98.5(O); Pulse Ox 94% on R/A; Height 5 ft. 0 in. ld1 ; Pain 0/10; 12:30 BP 105 / 65; Pulse 104; Resp 20; Pulse Ox 95% on R/A; ld1 13:30 BP 124 / 75; Pulse 104; Resp 21; Pulse Ox 95% on R/A; ld1 14:30 BP 104 / 63; Pulse 97; Resp 20; Pulse Ox 96% on R/A; ld1 15:30 BP 142 / 72; Pulse 95; Resp 20; Pulse Ox 94% on R/A; ld1 16:20 BP 125 / 73; Pulse 97; Resp 25; Pulse Ox 94% on R/A; ld1 17:11 BP 121 / 59; Pulse 87; Resp 19; Temp 98.5; Pulse Ox 99% on R/A; ap3 17:35 BP 115 / 60; Pulse 87; Resp 20; Pulse Ox 97% on R/A; ld1 18:14 BP 125 / 99; Pulse 81; Resp 20; Pulse Ox 93% on R/A; ld1 11:05 Body Mass Index 37.16 (83.46 kg, 152.4 cm) rs5 11:17 Pain Scale: Adult ld1 MDM: 11:08 Patient medically screened. cramelina 11:30 Differential diagnosis: gastritis, diverticulitis, hemorrhoids, hemorrhagic shock, carmelina varices. Differential Diagnosis altered mental status, sepsis, flu. Data reviewed: vital signs, nurses notes, EMS record, lab test result(s), EKG, radiologic studies, plain films. Consideration of Admission/Observation Escalation of care including admission/observation considered. I considered the following discharge prescriptions or medication management in the emergency department Medications were administered in the Emergency Department. See MAR. Independent interpretation of the following test(s) in the Emergency Department EKG: See my EKG interpretation above. Test considered but Not performed: Ultrasound no abd usg. Care significantly affected by the following chronic conditions: Hypertension, Obesity, Liver Disease. Counseling: I had a detailed discussion with the patient and/or guardian regarding the historical points, exam findings, and any diagnostic results supporting the discharge/admit diagnosis, lab results, radiology results, the need to transfer to another facility, for higher level of care, [facility] does not immediately have the required specialist. 09/24 11:18 Order name: Basic Metabolic Panel; Complete Time: 12:05 carmelina 09/24 11:18 Order name: CBC with Diff; Complete Time: 12: [facility] 09/24 11:18 Order name: LFT's; Complete Time: 12: [facility] 09/24 11:18 Order name: Magnesium; Complete Time: 12: [facility] 09/24 11:18 Order name: NT PRO-BNP; Complete Time: 12: [facility] 09/24 11:18 Order name: PT-INR; Complete Time: 12: [facility] 09/24 11:18 Order name: Troponin HS; Complete Time: 12: [facility] 09/24 11:18 Order name: Lipase; Complete Time: 12: [facility] 09/24 11:18 Order name: Type And Screen [facility] 09/24 11:25 Order name: AMMONIA; Complete Time: 18:29 [facility] 09/24 12:06 Order name: PRBC [facility] 09/24 12:06 Order name: Packed RBC Leukored [facility] 09/24 12:33 Order name: ABO/RH no charge; Complete Time: 18:29 [facility] 09/24 11:18 Order name: XRAY Chest (1 view); Complete Time: 12: [facility] 09/24 11:18 Order name: EKG; Complete Time: 11: [facility] 09/24 11:18 Order name: Cardiac monitoring; Complete Time: [facility] 09/24 11:18 Order name: EKG - Nurse/Tech; Complete Time: [facility] 09/24 11:18 Order name: IV Saline Lock; Complete Time: : [facility] 09/24 11:18 Order name: Labs collected and sent; Complete Time: : [facility] 09/24 11:18 Order name: O2 Per Protocol; Complete Time: : [facility] 09/24 11:18 Order name: O2 Sat Monitoring; Complete Time: : [facility] 09/24 11:18 Order name: IV Saline Lock - Large Bore; Complete Time: : [facility] 09/24 11:57 Order name: Labs - recollect needed: Ammonia only - needs to be on ice; Complete Time: hb 12:09/24 12:06 Order name: Transfuse; Complete Time: 16:50 [facility] EC: Rate is 110 beats/min. QRS [place] is Normal. MO interval is normal. No Q waves. T waves carmelina are Normal. No ST changes noted. Clinical impression: Sinus tachycardia. Interpreted by me. Reviewed by me. Administered Medications: 11:20 Drug: NS 0.9% IV 1000 ml IV at 1 bolus Per protocol; 1000 mL bolus Route: IV; Rate: 1 ld1 bolus; Site: right antecubital; 11:34 Drug: NS 0.9% IV 1000 ml IV at 125 ml/hr continuous Route: IV; Rate: 125 ml/hr; Site: rs5 right antecubital; 11:44 Not Given (Duplicate Order): [id number] mcg/h IV at calculated rate once carmelina 11:54 Drug: Pantoprazole IVP 80 mg IVP once Route: IVP; Site: right antecubital; rs5 11:55 Drug: Ondansetron IVP 4 mg IVP once; over 2 minutes Route: IVP; Site: right antecubital;rs5 11:56 Drug: SandoSTATIN IV 50 mcg IV at calculated rate once Route: IV; Rate: calculated rs5 rate; Site: right antecubital; 12:00 Drug: Pantoprazole IV 8 mg/hr IV at 25 ml/hr continuous; (Standard dilution is 80 mg in rs5 250 mL NS) Route: IV; Rate: 25 ml/hr; Site: right antecubital; 12:00 Drug: SandoSTATIN IV 50 mcg/h IV at calculated rate once Route: IV; Rate: calculated rs5 rate; Site: right antecubital; 18:58 Drug: Lactulose PO 30 grams 45 ml PO once Volume: 45 ml; Route: PO; ld1 18:58 Drug: Lactulose PO 30 grams 45 ml PO once Volume: 45 ml; Route: PO; ld1 Disposition Summary: 09/25/23 11:32 Transfer Ordered Notes: Reason: Higher level of care carmelina Condition: Fair carmelina Problem: new carmelina Symptoms: have improved carmelina Transfer Location: [facility](09/25/23 12:21) carmelina Accepting Physician: to [facility](09/25/23 18:59) ld1 Diagnosis - Other cirrhosis of liver carmelina - GI Bleed/ Gastrointestinal hemorrhage, unspecified - upper carmelina - Acute posthemorrhagic anemia carmelina Forms: - Medication Reconciliation Form carmelina - SBAR form carmelina Signatures: Dispatcher [employer] EDGlen Howard MD MD cha Baxter, Heather, RN RN Selene Thompson RN RN ld1 Josue Brunson, RN RN rs5 Corrections: (The following items were deleted from the chart) 11:19 11:19 BASIC METABOLIC PANEL+C.LAB.BRZ ordered. EDMS EDMS 11:19 11:19 CBC+H.LAB.BRZ ordered. EDMS EDMS 11:19 11:19 HEPATIC FUNCTION+C.LAB.BRZ ordered. EDMS EDMS 11:19 11:19 MAGNESIUM+C.LAB.BRZ ordered. EDMS EDMS 11:19 11:19 PROBNP+C.LAB.BRZ ordered. EDMS EDMS 11:19 11:19 PROTIME (+INR)+COAG.LAB.BRZ ordered. EDMS EDMS 11:19 11:19 Troponin High Sensitivity+C.LAB.BRZ ordered. EDMS EDMS 11:19 11:19 LIPASE+C.LAB.BRZ ordered. EDMS EDMS 11:19 11:19 TYPE AND SCREEN+BB.LAB.BRZ ordered. EDMS EDMS 11:19 11:19 Urinalysis+U.LAB.BRZ ordered. EDMS EDMS 12:07 11:32 to jewish carmelina carmelina 12:21 11:32 [employer] carmelina carmelina 12:21 12:07 to jewish carmelina carmelina 18:59 12:[address] [facility] carmelina ld1
--- NOTE | 2023-09-25 11:32 | ER ---
Nurse's Notes [facility] Name: Andie Lima Age: 63 yrs Sex: Female : 1960 Arrival Date: 09/25/2023 Time: 11:04 Bed 2 Private MD: Diagnosis: Other cirrhosis of liver;GI Bleed/ Gastrointestinal hemorrhage, unspecified-upper;Acute posthemorrhagic anemia Presentation: 09/24 11:05 Chief complaint: EMS states: Dark tarry stools for 2-3 days, vomited bright red blood rs5 this morning x1 episode. Coronavirus screen: At this time, the client does not indicate any symptoms associated with coronavirus-19. Ebola Screen: No symptoms or risks identified at this time. Initial Sepsis Screen: Does the patient meet any 2 criteria? HR > 90 bpm. Yes Does the patient have a suspected source of infection? No. Patient's initial sepsis screen is negative. Risk Assessment: Do you want to hurt yourself or someone else? Patient reports no desire to harm self or others. Onset of symptoms was September 25, 2023. Care prior to arrival: IV initiated. 20 GA, in the right hand. 11:05 Method Of Arrival: EMS: [facility] rs5 11:05 Acuity: TATUM 3 rs5 Triage Assessment: 11:08 General: Appears in no apparent distress. comfortable, Behavior is calm, cooperative. rs5 Pain: Denies pain. Historical: - Allergies: 11:07 Sulfa (Sulfonamide Antibiotics); rs5 - PMHx: 11:07 HEP C; Hypertension; TIA; Cirrhosis; rs5 - PSHx: 11:07 orthoscopic left knee; rs5 - Immunization history:: Adult Immunizations up to date. - Infectious Disease History:: Denies. - Social history:: Smoking status: Patient denies any tobacco usage or history of. Screenin:17 [facility] ED Fall Risk Assessment (Adult) History of falling in the last 3 months, ld1 including since admission No falls in past 3 months (0 pts). Abuse screen: Denies threats or abuse. Denies injuries from another. Nutritional screening: No deficits noted. Tuberculosis screening: No symptoms or risk factors identified. Assessment: 12:00 General: Appears in no apparent distress. comfortable, Behavior is calm, cooperative, ld1 appropriate for age. Pain: Denies pain. Neuro: Level of Consciousness is awake, alert, confused, Oriented to person, place, time, situation. Cardiovascular: Capillary refill < 3 seconds Patient's skin is warm and dry. Rhythm is sinus rhythm. Respiratory: Airway is patent Respiratory effort is even, unlabored. GI: Abdomen is round non-distended, Reports nausea, vomiting, dark tarry stool. : No signs and/or symptoms were reported regarding the genitourinary system. EENT: No signs and/or symptoms were reported regarding the EENT system. Derm: No signs and/or symptoms reported regarding the dermatologic system. Derm: No signs and/or symptoms reported regarding the dermatologic system. 13:30 Reassessment: Patient appears in no apparent distress at this time. No changes from ld1 previously documented assessment. Patient and/or family updated on plan of care and expected duration. Pain level reassessed. 14:45 Reassessment: Patient appears in no apparent distress at this time. No changes from ld1 previously documented assessment. Patient and/or family updated on plan of care and expected duration. Pain level reassessed. Patient is alert, oriented x 3, equal unlabored respirations, skin warm/dry/pink. 16:50 Reassessment: Patient appears in no apparent distress at this time. No changes from ld1 previously documented assessment. 18:12 Reassessment: Patient appears in no apparent distress at this time. No changes from ld1 previously documented assessment. Patient and/or family updated on plan of care and expected duration. Pain level reassessed. 18:17 Reassessment: 1 Unit of PRBC completed at this time. ld1 Vital Signs: 11:05 BP 146 / 66; Pulse 113; Resp 18; Pulse Ox 95% on R/A; Weight 83.46 kg; Height 4 ft. 11 rs5 in. ; 11:17 BP 146 / 66; Pulse 113; Resp 20; Temp 98.5(O); Pulse Ox 94% on R/A; Height 5 ft. 0 in. ld1 ; Pain 0/10; 12:30 BP 105 / 65; Pulse 104; Resp 20; Pulse Ox 95% on R/A; ld1 13:30 BP 124 / 75; Pulse 104; Resp 21; Pulse Ox 95% on R/A; ld1 14:30 BP 104 / 63; Pulse 97; Resp 20; Pulse Ox 96% on R/A; ld1 15:30 BP 142 / 72; Pulse 95; Resp 20; Pulse Ox 94% on R/A; ld1 16:20 BP 125 / 73; Pulse 97; Resp 25; Pulse Ox 94% on R/A; ld1 17:11 BP 121 / 59; Pulse 87; Resp 19; Temp 98.5; Pulse Ox 99% on R/A; ap3 17:35 BP 115 / 60; Pulse 87; Resp 20; Pulse Ox 97% on R/A; ld1 18:14 BP 125 / 99; Pulse 81; Resp 20; Pulse Ox 93% on R/A; ld1 11:05 Body Mass Index 37.16 (83.46 kg, 152.4 cm) rs5 11:17 Pain Scale: Adult ld1 ED Course: 11:05 Patient arrived in ED. rs5 11:07 Triage completed. rs5 11:08 Glen Patel MD is Attending Physician. [facility] 11:17 Selene Thompson, RN is Primary Nurse. ld1 11:17 No provider procedures requiring assistance completed. Inserted saline lock: 20 gauge ld1 in right antecubital area, using aseptic technique. Blood collected. 11:18 Patient has correct armband on for positive identification. Placed in gown. Bed in low ld1 position. Call light in reach. Side rails up X2. director community organization on. Pulse ox on. NIBP on. Door closed. Noise minimized. Warm blanket given. 11:19 Selene Thompson, RN is Primary Nurse. ld1 11:34 Josue Brunson, RN is Primary Nurse. rs5 11:39 XRAY Chest (1 view) In Process Unspecified. EDMS 11:54 attempted to initiate a transfer with the [facility] transfer center placed on auto hold.eb 12:06 initiated a transfer with Sameer from the [facility] transfer Center at the request of eb the patient. 12:16 per Kacie from the [facility] transfer center/ they will have to decline the patient eb in transfer/ they are at capacity/. 12:18 initiated a transfer with David from the [facility]/. eb 12:[address] Cook the hospitalist certified nurse practitioner for [facility]. with Dr. oJrge bailey for patient transfer consultation. 12:41 administrative approval given by David Alfaro/ patient has been accepted to [facility] room 1647 / Dr. Vielka Cook has accepted the patient in transfer/ report to be called to [phone]. 18:30 [facility] called for updated ETA, ETA 5 Minutes. ty 18:58 Patient transferred, IV remains in place. ld1 18:59 Arm band placed on right wrist. ld1 Administered Medications: 11:20 Drug: NS 0.9% IV 1000 ml IV at 1 bolus Per protocol; 1000 mL bolus Route: IV; Rate: 1 ld1 bolus; Site: right antecubital; 11:34 Drug: NS 0.9% IV 1000 ml IV at 125 ml/hr continuous Route: IV; Rate: 125 ml/hr; Site: rs5 right antecubital; 11:44 Not Given (Duplicate Order): [id number] mcg/h IV at calculated rate once carmelina 11:54 Drug: Pantoprazole IVP 80 mg IVP once Route: IVP; Site: right antecubital; rs5 11:55 Drug: Ondansetron IVP 4 mg IVP once; over 2 minutes Route: IVP; Site: right antecubital;rs5 11:56 Drug: SandoSTATIN IV 50 mcg IV at calculated rate once Route: IV; Rate: calculated rs5 rate; Site: right antecubital; 12:00 Drug: Pantoprazole IV 8 mg/hr IV at 25 ml/hr continuous; (Standard dilution is 80 mg in rs5 250 mL NS) Route: IV; Rate: 25 ml/hr; Site: right antecubital; 12:00 Drug: SandoSTATIN IV 50 mcg/h IV at calculated rate once Route: IV; Rate: calculated rs5 rate; Site: right antecubital; 18:58 Drug: Lactulose PO 30 grams 45 ml PO once Volume: 45 ml; Route: PO; ld1 18:58 Drug: Lactulose PO 30 grams 45 ml PO once Volume: 45 ml; Route: PO; ld1 Medication: 18:59 VIS not applicable for this client. ld1 Outcome: 11:32 ER care complete, transfer ordered by MD. cosme 18:58 Transferred by ground EMS ld1 18:58 Condition: stable 18:58 Instructed on the need for transfer, 18:59 Patient left the ED. ld1 Signatures: Dispatcher [employer] Glen Sweet MD MD cha Prokisch, Amanda RN RN [email or web address] Ewa Valderrama Lauren, RN RN ld1 Josue Brunson RN RN rs5 Elton Danielle Corrections: (The following items were deleted from the chart) 11:10 11:05 Pulse 113bpm; Resp 18bpm; Pulse Ox 95% RA; rs5 rs5 11:55 11:34 SandoSTATIN IV 50 mcg IV at calculated rate in right antecubital rs5 rs5 11:56 11:56 SandoSTATIN IV 50 mcg/h IV at calculated rate in right antecubital rs5 rs5
[2023-09-25 11:39] LABS: PT Prothrombin Time 14.5 SECONDS (9.5-12.5); Protime INR 1.33
[2023-09-25] MEDS ORDERED: ONDANSETRON 4 MG/2 ML VIAL ONE (11:49)
[2023-09-25 11:55] LABS: Albumin 3.2 g/dL (3.4-5.0); Albumin/Globulin Ratio 0.7 (1.1-1.8); Anion Gap 10.3 mEq/L (5.0-15.0); Bilirubin Direct 0.2 mg/dL (0-0.2); Bilirubin Indirect, Calculated 0.7 mg/dL (0.2-0.8); Bilirubin Total 0.9 mg/dL (0.2-1.0); Globulin 4.4 g/dL (2.3-3.5); Magnesium 1.9 mg/dL (1.6-2.4); Potassium 4.3 mEq/L (3.5-5.1); Protein, Total 7.6 g/dL (6.4-8.2); Troponin High Sensitivity 20.3 pg/mL (<58.9)
[2023-09-25 12:00] LABS: Absolute Eosinophils 0.1 K/uL (0-0.5); Absolute Lymphocytes (CBC) 1.4 K/uL (0.7-4.9); Absolute Monocytes 0.8 K/uL (0.1-1.3); Absolute Neutrophil 7.9 K/uL (1.8-8.0); Basophils % 0.4 % (0-1.3); Eosinophils % 0.5 % (0-4.4); Hematocrit 22.6 % (36.0-45.0); Hemoglobin 7.4 g/dL (12.0-15.0); Lymphocytes % 13.5 % (15.3-44.8); MCH 29.8 pg (27.0-35.0); MCHC 32.8 g/dL (32.0-36.0); MPV 9.7 fL (7.6-11.3); Monocytes % 7.6 % (3.3-12.3); Platelets 106 thou/uL (152-406); RBC Red Blood Cell Count 2.48 M/uL (3.86-4.86); Red Cell Distribution Width 14.6 % (12.1-15.2)
[2023-09-25] MEDS ORDERED: PANTOPRAZOLE INJ 80 MG in NA CHLORIDE 0.9% 250 ML IV SCH (12:00)
[2023-09-25] MEDS ORDERED: OCTREOTIDE 500 MCG in NA CHLORIDE 0.9% 500 ML IV SCH (12:00)
--- NOTE | 2023-09-25 12:01 | RAD REPORT ---
[facility]38 [facility] CLINICAL HISTORY: ABDOMINAL DISTENTION COMPARISON: Chest Single View dated 02/16/2021; CHEST PA AND LAT 2 VIEW dated 11/11/2012; CHEST SINGL E VIEW dated 10/17/2009 TECHNIQUE: Portable AP view of the chest. FINDINGS: The lungs are clear. No pneumothorax or effusion. The cardiomediastinal contours are unre markable. IMPRESSION: No acute cardiopulmonary process.
[2023-09-25] MEDS ORDERED: NA CHLORIDE 0.9% 250 ML ONE ×2 (13:03→15:58)
[2023-09-25] MEDS ORDERED: ACETAMINOPHEN 325 MG TABLET ONE (16:36)
[2023-09-25] MEDS ORDERED: DIPHENHYDRAMINE 50 MG/ML VIAL ONE (16:36)
[2023-09-25] MEDS ORDERED: LACTULOSE 20 GM/30 ML UCUP ONE (18:54)
[2023-09-25 19:31] VITALS: BP 125/99; TEMP 98.5; O2SAT 93
--- NOTE | 2023-09-29 14:29 | EKG ---
Test Date: 2023-09-25 Test Time: 11:18:11 Manager Integrated: MORA MEASUREMENT RESULTS: Intervals: Rate: 110 [place]: 176 QRSD: 90 QT: 330 QTc: 446 [place]: P: 30 [place]: 176 QRS: -9 T: 85 INTERPRETIVE STATEMENTS: Suspect unspecified pacemaker failure Sinus tachycardia Septal infarct, age undetermined Abnormal ECG Compared to ECG 02/17/2021 00:49:33 Myocardial infarct finding now present Sinus rhythm no longer present Ventricular premature complex(es) no longer present Left ventricular hypertrophy no longer present Electronically Signed On 09-29-23 14:15:50 CDT by Alexander Mancilla
== END 2023-09-25 18:59 | disposition short-term general hospital (02) ==
LOC: ER 11:04
PROC: 30233N1 Transfusion of Nonautologous Red Blood Cells into Peripheral Vein, Percutaneous Approach (ICD-10-PCS; principal; 2023-09-25)
DX: D62 Acute posthemorrhagic anemia (principal); K74.69 Other cirrhosis of liver; I10 Essential (primary) hypertension; Z88.2 Allergy status to sulfonamides
CPT/HCPCS: 93005; 85025; 80048; 36415; 82140; 86900; 83735; 86850; 85610; 86901; 80076; 86920 ×2; 84484; 83690; 83880; 71045; 96375; 96374; 99285; 36430; J2354 ×2; J1200; C9113; J2405; P9016; J7050; J7040; J7030